=== PATIENT | female | born 1945 | race Caucasian/White ===

== ENCOUNTER 2019-04-17 08:37 | Day surgery (SDC) | payer OTHER, BC ==
[2019-04-12 09:49] VITALS: BMI 32.4
--- NOTE | 2019-04-12 11:59 | HP ---
Admitting History and Physical - Primary Care Physician PCP: Higinio Acosta - Admission Chief Complaint: left breast cancer and right breast atypia History of Present Illness: Patient is a 74 yo female with h/o left breast DCIS (1995) who presented with a new left breast mass at 9 oclock 9 cm FN. The patient underwent a core bx on which was c/w infiltrating ductal with papillary features, ER and LA pos, Her 2 negative. The patient underwent an MRI 03/06, which was c/w known cancer as well as right linear enhancement at 6 o'clock spanning 4-8 cm FN. The patient had an MRI bx of this 6 o'clock area at point 4cmFN and 8cmFN. Both sites were c/w atypia. The patient is now presenting for a left WE with NL, and intra-op radiation as well as right WE with NL x 2. History Source: Patient Limitations to Obtaining History: No Limitations - Past Medical History Cardiovascular: Yes: HTN Heme/Onc: Yes: Cancer (Left breast DCIS 1995) Additional Past Medical History: Left UE lymphedema - Past Surgical History Additional Past Surgical History: Left breast WE and ANDx 1995 tonsillectomy - Advance Directives Advance Directives: Yes: Health Care Proxy - Smoking History Smoking history: Never smoked - Alcohol/Substance Use Hx Alcohol Use: No Home Medications - Allergies Allergies/Adverse Reactions: Allergies Allergy/AdvReac Type Severity Reaction Status Date / Time adhesive tape Allergy Rash Verified 04/12/19 09:28 - Home Medications Home Medications: Ambulatory Orders Alprazolam [Xanax] 0.5 mg PO DAILY PRN 04/12/19 Atenolol [Tenormin -] 50 mg PO DAILY 04/12/19 Atorvastatin Ca [Lipitor] 10 mg PO HS 04/12/19 Doxazosin Mesylate [Cardura] 1 mg PO HS 04/12/19 Escitalopram Oxalate [Lexapro -] 5 mg PO DAILY 04/12/19 Hydrochlorothiazide [Hctz -] 12.5 mg PO DAILY 04/12/19 Omeprazole 10 mg PO DAILY 04/12/19 Potassium Chloride 10 meq PO DAILY 04/12/19 Family Medical History Family Hx Cancer: Grandmother (paternal) (cancer of unknown type) Review of Systems - Review of Systems Respiratory: reports: SOB (sometimes) Breasts: reports: See HPI, Other (lymphedema of left UE) Physical Examination Constitutional: Yes: Well Nourished, Calm Breast(s): Yes: Other (Ptotic D-cup breasts with right larger then left breast. No suspicious masses or adenopathy noted bilaterally.) Assessment/Plan Plan: Left breast WE with NL and intraop radiation Right breast WE with NL x 2
[2019-04-17] MEDS ORDERED: MIDAZOLAM HCL 2 MG/2 ML SINGLE DOSE VIAL ONE ×2 (13:15→13:32)
[2019-04-17] MEDS ORDERED: DEXAMETHASONE SOD PHOSPHATE 4 MG/1 ML VIAL ONE (13:15)
[2019-04-17] MEDS ORDERED: PROPOFOL 20 ML ONE ×3 (13:15→15:30)
[2019-04-17] MEDS ORDERED: ceFAZolin SODIUM 1 GM VIAL ONE (13:16)
[2019-04-17] MEDS ORDERED: SODIUM CHLORIDE 0.9% P/F 10 ML VIAL IJ ONE (13:16)
[2019-04-17] MEDS ORDERED: LIDOCAINE HCL/PF 2% SDV 5ML VIAL ONE (13:16)
[2019-04-17] MEDS ORDERED: HALOPERIDOL LACTATE 5 MG/ML ONE (13:31)
[2019-04-17] MEDS ORDERED: SCOPOLAMINE HYDROBROMIDE 1 PATCH PATCH.TD72 ONE (13:32)
[2019-04-17] MEDS ORDERED: BUPIVACAINE HCL 0.25% 125 MG/50 ML VIAL ONE (13:32)
[2019-04-17] MEDS ORDERED: SUCCINYLCHOLINE CHLORIDE 200 MG/10 ML SYRINGE ONE (13:57)
[2019-04-17] MEDS ORDERED: EPHEDRINE SULFATE/0.9% NACL/PF 50 MG/10 ML SYRINGE NR ONE (14:04)
[2019-04-17] MEDS ORDERED: ROCURONIUM BROMIDE 50 MG/5 ML SYRINGE ONE (14:09)
[2019-04-17] MEDS ORDERED: KETOROLAC TROMETHAMINE 30 MG/1 ML VIAL IVPUSH PRN (15:07)
[2019-04-17] MEDS ORDERED: ONDANSETRON 4 MG/2 ML VIAL IVPUSH PRN (15:07)
[2019-04-17] MEDS ORDERED: DEXTROSE 5%-0.45% SALINE 1,000 ML IV SCH (15:15)
[2019-04-17] MEDS ORDERED: BUPIVACAINE HCL/PF 0.25% (2.5MG/ML) 10 ML VIAL IJ ONE (15:40)
[2019-04-17] MEDS ORDERED: NEOSTIGMINE METHYLSULFATE 0.5 MG/ML - 10 ML MDV ONE (16:43)
[2019-04-17] MEDS ORDERED: ACETAMINOPHEN 325 MG TABLET (FP) PO PRN (16:54)
[2019-04-17] MEDS ORDERED: KETOROLAC TROMETHAMINE 30 MG/1 ML VIAL ONE (17:35)
[2019-04-17 17:58] VITALS: TEMP 97.9
[2019-04-17 19:01] VITALS: BP 139/73; PULSE 84
--- NOTE | 2019-04-18 08:12 | OP ---
DATE OF OPERATION: 04/17/2019 PREOPERATIVE DIAGNOSIS: Left breast medial breast cancer overlapping regions with right breast atypia. POSTOPERATIVE DIAGNOSIS: Left breast medial breast cancer overlapping regions with right breast atypia, await permanent section. PROCEDURE: Left breast partial mastectomy with mammographic needle localization and intraoperative radiation with 3.5-cm INTRABEAM device and right breast partial mastectomy x2 for atypia with mammographic needle locations. ANESTHESIA: General endotracheal anesthesia. PRIMARY SURGEON: Tran Acosta MD LOSS PREVENTION SUPERVISOR: EDMAR Mai COMPLICATIONS: There were no complications. INDICATIONS: Briefly the patient is a 73-year-old postmenopausal female of Urdu descent. She has a history of undergoing a left breast upper outer quadrant wide excision in 1995 up in [place], [place] and underwent a full left axillary lymph node dissection but did not require any endocrine therapy but did have radiation therapy to the left breast. She developed significant lymphedema of the left arm. She had been doing well until she had a recent mammography and ultrasound on January 23, 2019, showing a new density in the left breast medial aspect measuring about 7 mm 9 cm from the nipple. Ultrasound-guided core biopsy showed a low-grade infiltrating ductal cancer which was ER/SD positive, HER2/moses negative. MRI showed the localized cancer in the left breast, but there was also some enhancement seen in the lower aspect of the right breast. She underwent MRI-guided core biopsies on March 22, 2019, of 2 areas in the right breast and both showed some atypical duct hyperplasia. The patient was seen by Radiation Oncology and presented in tumor board and it was decided that the patient could undergo another partial mastectomy on the left breast and decision was made to perform intraoperative radiation at the time of surgery. She understood the need for excision of the areas of atypia in the right breast at the same sitting. No jagdish evaluation was recommended due to her prior full axillary dissection. The patient was scheduled for the surgery and brought in through ambulatory surgery on April 17, 2019. She first underwent mammographic localizations of the 2 clips in the right breast and 1 clip in the left breast. She was brought to the holding area. In the holding area a site verification was made and informed consent was obtained. DESCRIPTION OF PROCEDURE: She was brought into the operating room and laid on the OR table in a supine position. Venodynes were placed on the lower extremities prior to induction. She received a gram of Ancef prior to incision. Both breasts were sterilely prepped and draped in the usual fashion with the wires prepped into the field and she underwent general endotracheal anesthesia. Once the patient was properly anesthetized timeout was performed. The left breast wide excision was performed through a radial incision. Dissection was undertaken around the needle localization wire and the breast tissue was completely removed from around the needle localization wire all the way down to the pectoralis major muscle. The specimen was completely removed and oriented with a long lateral, short superior suture and specimen radiograph showed removal of the clip in question. Separate margins were then taken on the superior, inferior, medial, lateral, deep, and anterior margins with a suture marking the biopsy cavity side. Hemostasis was achieved. At this point the 3.5-cm INTRABEAM device was used for intraoperative radiation. A pursestring 2-0 plain suture was used to pursestring the breast tissue around the device. The device was attached to the INTRABEAM arm. Ultrasound was used to confirm distance from the skin greater than 1 cm in all [address] a Ray-Kevin sponge around the top of the device and placed shielding around the skin. We then performed intraoperative radiation for about 18 minutes. At this point the device was removed and the pursestring suture was removed. Copious irrigation was used and hemostasis achieved. The breast parenchyma was then undermined to allow for a 4 x 3-cm tissue transfer closure. The breast tissue was reapproximated using 2-0 plain suture. The skin was closed using interrupted 3-0 deep dermal Vicryl suture and a running 4-0 subcuticular Biosyn suture. Mastisol and Steri-Strips were applied over the wound. At this point separate instruments and gloves were changed. Wide excisions were then performed of the 2 needle localization sites in the lower aspect of the right breast. Incision was made in the lower aspect of the right breast and dissection was undertaken and the 2 medial and lateral wire localizations were removed separately. The wires were removed intact with the breast tissue in the middle of the specimen and specimen radiograph showed removal of both clips in question. Hemostasis was achieved. The breast tissues were then reapproximated using 2-0 plain suture. The skin was then closed using interrupted 3-0 deep dermal Vicryl suture and a running 4-0 subcuticular Biosyn suture. Again Mastisol and Steri-Strips were applied over the wounds. The patient tolerated the procedure well without difficulty. Estimated blood loss was minimal and all sponge and needle counts were correct at the end of the case. The patient will be extubated and then recovered in the postanesthesia care unit. She will then be discharged home the same day once discharge criteria are met. She is to follow up in the office in 1 week for a formal wound and pathology check. TRAN ACOSTA M.D. [id number]
--- NOTE | 2019-04-18 09:30 | OP ---
DATE OF OPERATION: 04/17/2019 PROCEDURE: Post lumpectomy intraoperative radiation therapy for left breast cancer. PREOPERATIVE DIAGNOSIS: Left breast cancer. POSTOPERATIVE DIAGNOSIS: Left breast cancer. ATTENDING SURGEON: Higinio Acosta MD STRUCTURAL ANALYST/RADIATION ONCOLOGIST: Maggie Huddleston MD ANESTHESIA: General. COMPLICATIONS: None. INDICATIONS: Patient is a 74-year-old woman with history of DCIS of left breast in the outer quadrant who underwent breast conservation therapy and was recently diagnosed with an invasive cancer in the inner quadrant of the same breast. She has elected breast conservation therapy again and elects to proceed with intraoperative radiation therapy as adjuvant radiation therapy pending final pathology. PROCEDURE: Dr. Acosta performed left lumpectomy and sentinel lymph node biopsy, which he has dictated. After excision of additional margin, the lumpectomy cavity was sized for a 3.5 cm diameter spherical applicator, which was placed into the operative cavity at 9:00 of the left breast. The surrounding breast tissues were cinched around the applicator with a Vicryl purse string suture. I performed an ultrasound and clinical stimulation to ensure that the applicator was located within the operative bed at the 9 o'clock aspect of the left breast with close apposition of the surrounding breast tissue to the surface of the applicator. Ultrasound measurements confirmed a minimum skin to applicator separation of 1.54 cm at the 12 o'clock aspect of the applicator. Saline soaked Raytec gauze was placed between the skin and breast tissue to maximize separation between the applicator and the skin surface. Shielding material was placed over the breast to reduce scatter radiation. The patient received a total dose of 20 Gy prescribed to 0 mm from the applicator surface with 50 Kv x-rays using the INTRABEAM. Prior to treatment, the system was double checked with appropriate physics coding quality coordinator measures. The total time required for this treatment was 18 minutes 51 seconds at a dose rate of 1.066 Gy per minute. When the treatment was completed, survey of the patient and room confirmed that the INTRABEAM source was off. There were no complications or unexpected interruptions. Dr. Acosta removed the radiation applicator from the patient and completed the surgery. DISPO: The patient will be transferred to the recovery room following the surgery. MAGGIE HUDDLESTON M.D. [id number] MTDD
--- NOTE | 2019-04-23 15:58 | PATH ---
Surgical Pathology Report Patient Name: HEIKE SALMERON [facility]. Rec. #: [id number] /Age/Gender: 1945 (Age: 74) / F Account: [id number] Location: [facility] AMBULATORY Taken: 04/17/2019 Received: 04/17/2019 Reported: 04/23/2019 Physicians: Higinio Acosta M.D. Specimen(s) Received A: LEFT BREAST WIDE EXCISION B: LEFT BREAST LATERAL MARGIN C: LEFT BREAST MEDIAL MARGIN D: LEFT BREAST INFERIOR MARGIN E: LEFT BREAST SUPERIOR MARGIN F: LEFT BREAST POSTERIOR MARGIN G: LEFT BREAST ANTERIOR MARGIN H: RIGHT BREAST WIDE EXCISION (MEDIAL) I: RIGHT BREAST WIDE EXCISION (LATERAL) J: RIGHT BREAST FURTHEST MEDIAL MARGIN Clinical History Left IDC, right breast atypia ADH Final Diagnosis A. BREAST, LEFT, WIDE EXCISION: INVASIVE DUCTAL CARCINOMA, MODERATELY DIFFERENTIATED, WITH PAPILLARY FEATURES (TUBULE SCORE: 2/3, NUCLEAR GRADE: 2/3, MITOTIC SCORE: 2/3; TOTAL ANGELA SCORE: 6/9), WITH ASSOCIATED MICROCALCIFICATIONS. INVASIVE CARCINOMA MEASURES 1.1 CM IN GREATEST MICROSCOPIC DIMENSION. FOCAL DUCTAL CARCINOMA IN SITU (DCIS), INTERMEDIATE NUCLEAR GRADE, CRIBRIFORM TYPE, WITH MODERATE NECROSIS. NO LYMPHOVASCULAR INVASION IDENTIFIED. INVASIVE CARCINOMA IS <1 MM FROM CLOSEST POSTERIOR MARGIN. SEE SPECIMEN B-G FOR FINAL MARGINS. PRIOR BIOPSY SITE CHANGES ARE PRESENT. PATHOLOGIC STAGE (pTNM): pT1c pNx. SEE INVASIVE CARCINOMA CASE SUMMARY BELOW. B. BREAST, LEFT, LATERAL, EXCISION: BENIGN BREAST PARENCHYMA. C. BREAST, LEFT, MEDIAL, EXCISION: BENIGN BREAST PARENCHYMA. D. BREAST, LEFT, INFERIOR, EXCISION: BENIGN BREAST PARENCHYMA. E. BREAST, LEFT, SUPERIOR, EXCISION: BENIGN BREAST PARENCHYMA. F. BREAST, LEFT, POSTERIOR, EXCISION: BENIGN BREAST PARENCHYMA. G. BREAST, LEFT, ANTERIOR, EXCISION: BENIGN BREAST PARENCHYMA. H. BREAST, RIGHT, MEDIAL, WIDE EXCISION: DUCTAL CARCINOMA IN SITU (DCIS), CRIBRIFORM, PAPILLARY AND MICROPAPILLARY TYPES, INTERMEDIATE NUCLEAR GRADE, PRESENT IN FIVE OF EIGHT SLIDES (5/8). DCIS SPANS UP TO 4 MM IN GREATEST MICROSCOPIC DIMENSION. DCIS IS <1 MM FROM CLOSEST MEDIAL AND ANTERIOR MARGINS, AND 1 MM FROM SUPERIOR MARGIN. PRIOR BIOPSY SITE CHANGES ARE PRESENT. REMAINDER OF BREAST PARENCHYMA SHOWS ATYPICAL DUCTAL HYPERPLASIA AND FLAT EPITHELIAL ATYPIA IN A BACKGROUND OF PROLIFERATIVE FIBROCYSTIC CHANGES INCLUDING STROMAL FIBROSIS, MICROCYSTS, APOCRINE METAPLASIA, SCLEROSING ADENOSIS, USUAL DUCTAL HYPERPLASIA, COLUMNAR CELL CHANGES, AND ASSOCIATED MICROCALCIFICATIONS. CALCIFICATIONS WITHIN BLOOD VESSEL ANDRADE ARE NOTED. SEE CASE SUMMARY BELOW. I. BREAST, RIGHT, LATERAL, WIDE EXCISION: DUCTAL CARCINOMA IN SITU (DCIS), CRIBRIFORM, PAPILLARY AND MICROPAPILLARY TYPES, INTERMEDIATE NUCLEAR GRADE, PRESENT IN FOUR OF NINE SLIDES (4/9). DCIS SPANS UP TO 3 MM IN GREATEST MICROSCOPIC DIMENSION. SURGICAL MARGINS ARE UNINVOLVED BY DCIS; DCIS IS 1 MM FROM CLOSEST POSTERIOR MARGIN. PRIOR BIOPSY SITE CHANGES ARE PRESENT. REMAINDER OF BREAST PARENCHYMA SHOWS ATYPICAL DUCTAL HYPERPLASIA AND FLAT EPITHELIAL ATYPIA IN A BACKGROUND OF PROLIFERATIVE FIBROCYSTIC CHANGES INCLUDING STROMAL FIBROSIS, USUAL DUCTAL HYPERPLASIA, COLUMNAR CELL CHANGES, AND ASSOCIATED MICROCALCIFICATIONS. SEE CASE SUMMARY BELOW. J. BREAST, RIGHT, FURTHEST MEDIAL MARGIN, EXCISION DUCTAL CARCINOMA IN SITU (DCIS), CRIBRIFORM, PAPILLARY AND MICROPAPILLARY TYPES, INTERMEDIATE NUCLEAR GRADE, PRESENT IN FOUR OF SIX SLIDES (4/6). DCIS SPANS UP TO 7 MM IN GREATEST MICROSCOPIC DIMENSION. SURGICAL MARGINS ARE UNINVOLVED BY DCIS; DCIS IS 1.5 MM FROM CLOSEST NEW MARGIN. PRIOR BIOPSY SITE CHANGES ARE PRESENT. Comments LEFT BREAST (A-G) Breast Invasive Carcinoma: Surgical Pathology Case Summary (Based on AJCC TNM 8 th edition) Procedure _X_ Excision (less than total mastectomy) Specimen Laterality _X_ Left Tumor Size _X_ Greatest dimension of largest invasive focus >1 mm (millimeters): 11 mm Histologic Type _X_ Invasive ductal carcinoma with papillary features Histologic Grade (Angela Histologic Score) Glandular (Acinar)/Tubular Differentiation _X_ Score 2 (10% to 75% of tumor area forming glandular/tubular structures) Nuclear Pleomorphism _X_ Score 2 Mitotic Rate _X_ Score 2 Overall Grade _X_ Grade 2 (scores of 6) Tumor Focality _X_ Single focus of invasive carcinoma Ductal Carcinoma In Situ (DCIS) _X_ DCIS is present in specimen _X_ Negative for extensive intraductal component (EIC) Margins Invasive Carcinoma Margins _X_ Uninvolved by invasive carcinoma Distance from closest margin: <1 mm from posterior margin in wide excision (A), negative in final posterior margin (F) Closest margin: Posterior DCIS Margins _X_ Uninvolved by DCIS Distance from closest margin (millimeters): 5 mm Closest margin: 5 mm from superior margin in wide excision (A), negative on additional final superior margin (E) Specify margin(s): superior Regional Lymph Nodes _X_ No lymph nodes submitted or found Treatment Effect _X_ No known presurgical therapy Lymphovascular Invasion _X_ Not identified Pathologic Stage Classification (pTNM, AJCC 8th Edition) Primary Tumor (Invasive Carcinoma) (pT) _X_ pT1c: Tumor >10 mm but =20 mm in greatest dimension Regional Lymph Nodes (pN) Category (pN) _X_ pNX: Regional lymph nodes cannot be assessed RIGHT BREAST (H-J) DCIS of the Breast: Surgical Pathology Cancer Case Summary (Based on AJCC TNM 8 th edition) Procedure _X_ Excision (less than total mastectomy) Specimen Laterality _X_ Right Size (Extent) of DCIS Estimated size (extent) of DCIS (greatest dimension using gross and microscopic evaluation): at least (millimeters): 7 mm Number of blocks with DCIS: 13 Number of blocks examined: 23 Histologic Type _X_ Ductal carcinoma in situ Architectural Patterns _X_ Cribriform _X_ Micropapillary _X_ Papillary Nuclear Grade _X_ Grade II (intermediate) Necrosis _X_ Not identified Margins _X_ Uninvolved by DCIS Distance from closest margin (millimeters): DCIS is <1 mm from closest medial and anterior margins and 1 mm from superior margin (in medial wide Excision-H) DCIS is 1 mm from closest posterior margin (in lateral wide excision-I) DCIS is 1.5 mm from new margin (on further medial margin J) Specify closest margins: Part H (medial wide excision): anterior, medial, superior Part I (lateral wide excision): posterior Part J further medial margin Regional Lymph Nodes _X_ No lymph nodes submitted or found Pathologic Stage Classification (pTNM, AJCC 8th Edition) Primary Tumor (pT) _X_ pTis (DCIS): Ductal carcinoma in situ Regional Lymph Nodes (pN) _X_ pNx Regional lymph nodes cannot be assessed Microcalcifications _X__ Other (specify): vascular andrade Comment: Biomarker studies pending, findings will be reported separately. Electronically Signed Whitley Sabillon M.D. Addendum Reported: 04/25/2019 Addendum Diagnosis Left Breast Breast Biomarkers performed on block "A2" performed at [place], [place] ([id number]) are as follows: ER (clone [id number] mouse monoclonal antibody by [employer]): >95% nuclear staining with strong intensity (Positive). AR (clone16 mouse monoclonal antibody by [employer]): ~40% nuclear staining with moderate to strong intensity (Positive). Her2 IHC (EP3 from [employer], formerly known as [id number], using Jackson Polymer Refine detection kit): 1+ (Negative). Ki-67: ~20% (Intermediate proliferative index). Right Breast Breast Biomarkers performed on block "J1" performed at [place], [place] ([id number]) are as follows: ER (clone [id number] mouse monoclonal antibody by [employer]): ~60% nuclear staining with strong intensity (Positive). AR (clone16 mouse monoclonal antibody by [employer]): ~40% nuclear staining with moderate to strong intensity (Positive). Positive and negative controls (internal if applicable) show appropriate results. Formalin fixation and cold ischemic times are within current ASCO/CAP recommendations for ER, AR and Her2 testing. Whitley Sabillon M.D. Gross Description A. Received in formalin, labeled "left breast wide excision," is a 4.6 x 3.8 x 3.0 cm. latif-yellow, irregular, portion of fibroadipose tissue with a needle localization wire present. There is a short suture marking the superior aspect and a long suture marking the lateral aspect, per the surgeon. There is no skin or nipple present. The specimen is inked as follows: superior and lateral blue; inferior green; medial yellow; anterior red; posterior black. The specimen is serially sectioned from lateral to medial. Sectioning reveals a 0.7 x 0.6 x 0.6 cm latif, indurated mass focally abutting the posterior margin. The lesion is focally 0.4 cm from the superior margin and 0.7 cm from the inferior margin. In Processing Instructor sections are submitted in 5 cassettes as follows: 1-2-full face section of mass each (each with superior, inferior and posterior margins); 3-anterior margin; 4-lateral margin; 5-medial margin. Time to formalin fixation: 10 minutes Total formalin fixation time: Approximately 27 hours. B. Received in formalin labeled "left breast lateral margin," is a 1.6 x 1.5 x 0.7 cm portion of fibroadipose tissue with a suture marking the biopsy cavity side, per the surgeon. The new margin is inked black and the specimen is serially sectioned. The specimen is entirely submitted in 2 cassettes. C. Received in formalin labeled "left breast medial margin," is a 1.8 x 1.6 x 0.7 cm portion of fibroadipose tissue with a suture marking the biopsy cavity side, per the surgeon. The new margin is inked black and the specimen is serially sectioned. The specimen is entirely submitted in 2 cassettes. D. Received in formalin labeled "left breast inferior margin," is a 2.2 x 1.6 x 0.8 cm portion of fibroadipose tissue with a suture marking the biopsy cavity side, per the surgeon. The new margin is inked black and the specimen is serially sectioned. The specimen is entirely submitted in 3 cassettes. E. Received in formalin labeled "left breast superior margin," the 2.2 x 2.0 x 0.8 cm portion of fibroadipose tissue with a suture marking the biopsy cavity side, per the surgeon. The new margin is inked black and the specimen is serially sectioned. The specimen is entirely submitted in 3 cassettes. F. Received in formalin labeled "left breast posterior margin," is a 2.4 x 1.3 x 0.7 cm portion of fibroadipose tissue with a suture marking the biopsy cavity side, per the surgeon. The new margin is inked black and the specimen is serially sectioned. The specimen is entirely submitted in 3 cassettes. G. Received in formalin labeled "left breast anterior margin," is a 2.3 x 1.8 x 0.8 cm portion of fibroadipose tissue with a suture marking the biopsy cavity side, per the surgeon. The new margin is inked black and the specimen is serially sectioned. The specimen is entirely submitted in 2 cassettes. H. Received in formalin, labeled "right breast wide excision (medial)," is a 5.3 x 3.8 x 3.0 cm. latif-yellow, irregular, portion of fibroadipose tissue with a needle localization wire present. There is a short suture marking the superior aspect and a long suture marking the lateral aspect, per the surgeon. There is no skin or nipple present. The specimen is inked as follows: superior and lateral blue; inferior green; medial yellow; anterior red; posterior black. The specimen is serially sectioned from superior to inferior. Sectioning reveals a 1.0 x 1.0 x 0.9 cm indurated focus of fibrous tissue with associated fat necrosis abutting the superior margin. The focus is 0.1 cm from the medial margin. There is an additional 1.4 x 1.0 x 1.0 cm ill-defined focus of firm fibrous tissue focally abutting the anterior and lateral margins. In Processing Instructor sections are submitted in 8 cassettes as follows: 1-2-lesion at superior-medial aspect of specimen (each with medial margin); 3-lesion at superior-medial aspect of specimen (with superior margin); 4-6-second lesion at anterior-lateral aspect of specimen (each with anterior and lateral margins); 7-inferior margin; 8-posterior margin. I. Received in formalin, labeled "right breast wide excision (lateral)," is a 5.3 x 4.3 x 3.2 cm. latif-yellow, irregular, portion of fibroadipose tissue with a needle localization wire present. There is a short suture marking the superior aspect and a long suture marking the lateral aspect, per the surgeon. There is no skin or nipple present. The specimen is inked as follows: superior and lateral blue; inferior green; medial yellow; anterior red; posterior black. The specimen is serially sectioned from superior to inferior. Sectioning reveals a previous biopsy site with an associated biopsy cavity and fat necrosis. Sectioning reveals focal firm fibrous tissue surrounding the biopsy cavity. No definitive mass is identified. In Processing Instructor sections are submitted in 9 cassettes as follows: 1-superior margin; 7-4-nspphdho biopsy site sequentially submitted from superior to inferior (each with anterior and posterior margins); 7-lateral margin; 8-medial margin; 9-inferior margin. J. Received in formalin labeled "right breast furthest medial margin," is a 3.3 x 3.0 x 1.7 cm portion of fibroadipose tissue with a suture marking the biopsy cavity side, per the surgeon. The side with the suture is inked black and the opposing side is inked in red. The specimen is entirely and sequentially submitted in 6 cassettes. 04/18/2019 [facility]04/18/2019
== END 2019-04-17 19:00 | disposition home or self-care (01) ==
LOC: FASU 08:37
PROVIDERS: ATTEND Surgery Surgical Oncology
PROC: 0HBV0ZZ Excision of Bilateral Breast, Open Approach (ICD-10-PCS; principal; 2019-04-17 14:15)
PROC: DMY07ZZ Contact Radiation of Left Breast (ICD-10-PCS; 2019-04-17 14:15)
DX: C50.812 Malignant neoplasm of overlapping sites of left female breast (principal); N60.91 Unspecified benign mammary dysplasia of right breast
CPT/HCPCS: 19281; 19282; 76098-TC-FY; 76641-TC-50; 77290; 77300; 77316; 77332; 77370-TC; 77424; 88307-TC; 94760; C9726